=== PATIENT | male | born 1995 | race Caucasian/White ===

== ENCOUNTER 2016-12-06 16:29 | Emergency (ER) | payer OTHER | END 2016-12-06 17:39 | disposition home or self-care (01) | LOC: FER 16:29 | DX: B34.9 Viral infection, unspecified (principal); F17.210 Nicotine dependence, cigarettes, uncomplicated | CPT/HCPCS: 87804; 87899; 99283 ==

== ENCOUNTER 2016-12-22 23:49 | Emergency (ER) | payer OTHER | END 2016-12-23 03:20 | disposition home or self-care (01) | LOC: FER 23:49 | DX: R20.2 Paresthesia of skin (principal); M62.838 Other muscle spasm; Z88.0 Allergy status to penicillin; Z98.890 Other specified postprocedural states | CPT/HCPCS: 72040; 99284 ==